=== PATIENT | female | born 1995 | race Caucasian/White ===

== ENCOUNTER 2021-03-06 10:15 | Outpatient (REF) | payer MEDICARE, MEDICAID, SELFPAY | END 2021-03-06 10:16 | disposition home or self-care (01) | LOC: HO.LAB 10:15 | PROVIDERS: Visit Provider Internal Medicine | DX: Z20.822 Contact with and (suspected) exposure to COVID-19 (principal) | CPT/HCPCS: C9803; U0003; U0005 ==

== ENCOUNTER 2022-05-13 14:54 | Emergency (ER) | payer MEDICARE, MEDICAID, SELFPAY ==
--- NOTE | ~2022-05-13 | XR_ITS ---
EXAMINATION: XR HAND, LEFT CLINICAL INFORMATION: Ring finger injury COMPARISON: Left hand radiographs 09/28/2012 TECHNIQUE: PA, lateral, and oblique views of the left hand. FINDINGS: Apparent subtle cortical step-off at the base of the ring finger distal phalanx as seen on the oblique projection, equivocal for nondisplaced fracture. Finding is not confirmed on additional views. No additional fracture or dislocation. The joint spaces throughout the hand and wrist are maintained. XR/XR hand LT min 3V IMPRESSION: Apparent subtle cortical step-off equivocal for nondisplaced fracture at the base of the ring finger distal phalanx as seen on the oblique view. No definite or additional fracture identified.
[2022-05-13 16:35] VITALS: BP 121/69; PULSE 78; RESP 18; TEMP 36.6; O2SAT 99; BMI 26.1
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
[2022-05-13] MEDS: Ketorolac Tromethamine 15 MG/ML VIAL IM (19:29)
== END 2022-05-13 19:36 | disposition home or self-care (01) ==
PROVIDERS: Emergency Provider Internal Medicine
DX: S62.605A Fracture of unspecified phalanx of left ring finger, initial encounter for closed fracture (principal); M79.642 Pain in left hand; F10.129 Alcohol abuse with intoxication, unspecified; W01.0XXA Fall on same level from slipping, tripping and stumbling without subsequent striking against object, initial encounter; Y93.9 Activity, unspecified; Y92.9 Unspecified place or not applicable; Y99.9 Unspecified external cause status; Y90.9 Presence of alcohol in blood, level not specified
CPT/HCPCS: 73130; 96372; 99282; 99283; 99284; J1885

== ENCOUNTER 2022-05-27 07:54 | Outpatient (REF) | payer MEDICARE, MEDICAID, SELFPAY | END 2022-05-27 07:55 | disposition home or self-care (01) | LOC: HO.HOSX 07:54 | PROVIDERS: Visit Provider Physician Assistant | DX: Z13.89 Encounter for screening for other disorder (principal) ==

== ENCOUNTER 2022-07-07 10:52 | Outpatient (REF) | payer MEDICARE, MEDICAID, SELFPAY ==
--- NOTE | ~2022-07-07 | XR_ITS ---
EXAMINATION: XR HAND, RIGHT CLINICAL INFORMATION: Right hand pain COMPARISON: None TECHNIQUE: PA, lateral, and oblique views of the right hand. FINDINGS: The bones are normal. No fracture. Alignment is anatomic. Joint spaces are maintained. No erosions or soft tissue calcifications. Soft tissue swelling seen in the second digit centered at the PIP joint XR/XR hand RT min 3V IMPRESSION: Soft tissue swelling of the second PIP joint. No acute osseous process
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
== END 2022-07-07 10:53 | disposition home or self-care (01) ==
LOC: HO.HOSX 10:52
PROVIDERS: Visit Provider Orthopaedic Surgery
DX: S62.635A Displaced fracture of distal phalanx of left ring finger, initial encounter for closed fracture (principal); S69.91XA Unspecified injury of right wrist, hand and finger(s), initial encounter
CPT/HCPCS: 73130; 99202

== ENCOUNTER 2022-07-15 08:30 | Outpatient (REF) | payer MEDICARE, MEDICAID, SELFPAY ==
--- NOTE | ~2022-07-15 | XR_ITS ---
EXAMINATION: XR LUMBOSACRAL SPINE CLINICAL INFORMATION: Low back pain. COMPARISON: None TECHNIQUE: Three views of the lumbosacral spine. FINDINGS: There is normal lumbar lordosis. The vertebral heights, alignment and disc heights are normal. There is no visible acute fracture, dislocation or lytic process seen. SI joints are symmetrical and normal. The paravertebral soft tissues are normal. XR/XR lumbar spine 2-3V IMPRESSION: Unremarkable lumbar spine exam.
[2022-07-15 09:28] LABS: Hematocrit 37.7 % (37.0-47.0); Hemoglobin 12.4 g/dl (12.0-16.0); Mean Corpuscular HGB Conc 32.9 g/dl (31.0-35.0); Mean Corpuscular Hemoglobin 28.2 pg (27.0-33.0); Mean Corpuscular Volume 85.9 fL (80.0-98.0); Mean Platelet Volume 10.4 fL (9.4-12.3); Platelet Count 333 X10*3/uL (160-400); Red Blood Count 4.39 X10*6/uL (4.20-5.50); Red Cell Distribution Width 14.2 % (11.0-16.0)
[2022-07-15 10:09] LABS: Alanine Aminotransferase 14 U/L (0-31); Albumin Level 4.3 g/dL (3.5-5.0); Alkaline Phosphatase 59 U/L (39-117); Anion Gap 16 (12-20); Aspartate Amino Transferase 16 U/L (5-31); Bilirubin Total < 0.2 mg/dL (0.0-1.0); Blood Urea Nitrogen 10 mg/dL (9-16); Calcium 9.1 mg/dL (8.4-10.2); Carbon Dioxide 20 mmol/L (22-29); Chloride 107 mmol/L (96-108); Estimated Glomerular Filt Rate > 60; Glucose Fasting 89 mg/dL (60-99); Iron 40 mcg/dL (30-160); Percent Iron Saturation 11 % (15-50); Potassium 4.5 mmol/L (3.3-5.1); Sodium 138 mmol/L (135-145); Total Iron Binding Capacity 349 mcg/dL (228-428); Total Protein 7.2 g/dL (6.5-8.0); Unsaturated Iron Binding 309 ug/dL
[2022-07-15 10:16] LABS: TSH reflex Free T4 1.26 uIU/mL (0.32-4.0)
== END 2022-07-15 08:31 | disposition home or self-care (01) ==
LOC: HO.LAB 08:30
PROVIDERS: PCP Physician Assistant; Visit Provider Physician Assistant
DX: Z13.29 Encounter for screening for other suspected endocrine disorder (principal); M54.50 Low back pain, unspecified; D50.0 Iron deficiency anemia secondary to blood loss (chronic)
CPT/HCPCS: 36415; 72100; 80053; 83540; 84443; 85027

== ENCOUNTER 2022-08-03 17:02 | Outpatient (REF) | payer MEDICARE, MEDICAID, SELFPAY ==
--- NOTE | ~2022-08-03 | XR_ITS ---
EXAMINATION: XR HAND, LEFT CLINICAL INFORMATION: Pain in left hand COMPARISON: 07/07/2022 TECHNIQUE: PA, lateral, and oblique views of the left hand. FINDINGS: The bones and soft tissues are normal. No fracture. Alignment is anatomic. Joint spaces are maintained. No erosions or soft tissue calcifications. XR/XR hand LT min 3V IMPRESSION: No acute osseous abnormality of the left hand.
== END 2022-08-03 17:03 | disposition home or self-care (01) ==
LOC: HO.HOSX 17:02
PROVIDERS: Visit Provider Orthopaedic Surgery
DX: M79.642 Pain in left hand (principal)
CPT/HCPCS: 73130

== ENCOUNTER → 2022-08-04 10:39 | Outpatient (BNVA) | payer MEDICARE, MEDICAID, SELFPAY | PROVIDERS: PCP Physician Assistant; Visit Provider Orthopaedic Surgery | DX: M79.642 Pain in left hand (principal); S62.665D Nondisplaced fracture of distal phalanx of left ring finger, subsequent encounter for fracture with routine healing; X58.XXXD Exposure to other specified factors, subsequent encounter; S63.630A Sprain of interphalangeal joint of right index finger, initial encounter; W18.30XA Fall on same level, unspecified, initial encounter; Y93.9 Activity, unspecified; Y92.9 Unspecified place or not applicable; Y99.8 Other external cause status | CPT/HCPCS: 99212 ==

== ENCOUNTER 2023-03-10 20:20 | Emergency (ER) | payer MEDICARE, MEDICAID, SELFPAY ==
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
[2023-03-10 20:32] VITALS: BP 112/73; PULSE 101; RESP 20; TEMP 36.9; O2SAT 97; BMI 27.2
== END 2023-03-10 23:54 | disposition left against medical advice (07) ==
PROVIDERS: Emergency Provider Emergency Medicine; PCP Physician Assistant
DX: S61.411A Laceration without foreign body of right hand, initial encounter (principal); R51.9 Headache, unspecified; Y04.2XXA Assault by strike against or bumped into by another person, initial encounter; Y93.9 Activity, unspecified; Y92.9 Unspecified place or not applicable; Y99.9 Unspecified external cause status; Z79.899 Other long term (current) drug therapy
CPT/HCPCS: 70450; 70486; 99282; 99284

== ENCOUNTER 2024-03-01 10:32 | Outpatient (AMB) | payer MEDICARE, MEDICAID, SELFPAY ==
[2024-03-01 10:54] VITALS: BP 120/70; PULSE 81; TEMP 36.3; O2SAT 99; BMI 27.2
--- NOTE | 2024-03-01 10:54 | AM.OFFWIN_ITS ---
Intake Vital Signs 03/01/24 10:54 Height 4 ft 10 in Weight 130 lb BMI 27.2 BP 120/70 Blood Pressure Location Lt brachial Position Sitting Pulse 81 Pulse Source Pulse Oximeter Temp 97.3 F Temp Source Temporal Artery Scan Pulse Oximetry (%) 99 Oxygen Delivery Method Room Air Intake Visit Reasons: EST/left arm swelling (lobby) Intake Note: pt is here today for lft arm swollen started 2 days ago Patient Tobacco Use Status: Current everyday Tobacco user Allergies blueberry [Blueberry] Allergy (Severe, Verified 03/01/24 10:56) SWELLING blueberries Allergy (Unknown, Uncoded 08/04/22 10:58) facial swelling Do you need a note to return to daycare/school/sports/work: No HPI HPI Comments History of Present Illness Details 28 y/o female patient who presents to [facility] in clinic with c/o Left arm swelling x 2 days. Pt reports a small lump left forearm, that is painful. Li mited ROM due to pain. Reports numbness to the fingers. [facility] Medical History Anxiety Social History Housing: Other Alcohol intake: current Alcohol intake frequency: a few times a month Patient Tobacco Use Status: Current everyday Tobacco user Cigarettes Per Day: 10 e-Cigarette/Vaping Use: Never Used Substance Use Type: Marijuana service: No Current occupational status: disabled Current occupation: rt hand Cognitive needs: No Hearing needs: No Vision needs: No Review of Systems Const All systems reviewed & are unremarkable except as noted in HPI and below Physical Exam Vital Signs: Last Vital Signs Temp 97.3 F 03/01/24 10:54 Pulse 81 03/01/24 10:54 BP 120/70 03/01/24 10:54 Pulse Ox 99 03/01/24 10:54 Oxygen Delivery Method Room Air 03/01/24 10:54 BMI result Body Mass Index 27.2 Const General: comfortable and no acute distress Orientation/consciousness: patient oriented x3 Neuro General: patient oriented x3, gait normal and moves all extremities Extrem Left upper extremity: normal capillary refill and elbow/forearm (A small Palpable soft lump, tender and non mobile by the left Bicep) Details: tenderness and abnormal ROM (Limited ROM of left arm due to pain. ) Details: pain with active ROM Psych Speech and movement: Normal speech and movement present Assessment & Plan Assessment & Plan (1) Left forearm pain: Code(s): M79.632 - Pain in left forearm Plan: - Lump vs Lipoma vs cyst - Ordered routine U/S - Acetaminophen for pain relief - F/u With PCP. Orders: Orders US extremity nonvascular ray Today M79.632 - Pain in left forearm Coding Level of Care Code Est Pt Level 3 (90073) Diagnoses Left forearm pain M79.632 Time Spent (min) 15
== END 2024-03-01 12:05 | disposition home or self-care (01) ==
PROVIDERS: PCP Physician Assistant; Visit Provider Nurse Practitioner Family
DX: M79.632 Pain in left forearm (principal)
CPT/HCPCS: 99213

== ENCOUNTER 2024-03-07 13:31 | Outpatient (REF) | payer MEDICARE, MEDICAID, SELFPAY ==
--- NOTE | ~2024-03-07 | US_ITS ---
EXAMINATION: ULTRASOUND LEFT ARM CLINICAL INFORMATION: Palpable lump biceps with pain and swelling for 2 days and decreased range of motion. COMPARISON: None available. TECHNIQUE: High-frequency linear ultrasound transducer was used to examine the area of clinical concern. FINDINGS: No abnormality is seen. Normal muscle is identified. No masses, fluid collections or adenopathy is seen. US/US extremity nonvascular ray IMPRESSION: No abnormality is seen.
== END 2024-03-07 13:32 | disposition home or self-care (01) ==
LOC: HO.US 13:31
PROVIDERS: PCP Physician Assistant; Visit Provider Nurse Practitioner Family
DX: M79.632 Pain in left forearm (principal)
CPT/HCPCS: 76882

== ENCOUNTER 2024-03-26 04:33 | Emergency (ER) | payer MEDICARE, MEDICAID, SELFPAY ==
[2024-03-26 05:04] VITALS: BP 95/57; PULSE 88; RESP 20; TEMP 36.7; O2SAT 98; BMI 27.2
[2024-03-26 05:25] LABS: Basophils Percent Auto 0.2 % (0-2); Eosinophils Percent Auto 0.1 % (0-4); Hematocrit 44.1 % (37.0-47.0); Hemoglobin 15.1 g/dl (12.0-16.0); Imm Gran Abs Auto 0.07 X10*3/uL (0.00-0.03); Imm Gran Pct Auto 0.4 % (0.0-0.4); Lymphocytes Absolute Auto 0.6 X10*3/uL (1.2-4.9); Lymphocytes Percent Auto 3.8 % (20-40); MANUAL DIFF FLAG SCAN; Mean Corpuscular HGB Conc 34.2 g/dl (31.0-35.0); Mean Corpuscular Volume 84.8 fL (80.0-98.0); Mean Platelet Volume 9.7 fL (9.4-12.3); Monocytes Absolute Auto 0.5 X10*3/uL (0.1-1.2); Monocytes Percent Auto 3.2 % (2-11); Neutrophils Absolute Auto 15.6 x10*3/uL (2.0-8.3); Neutrophils Percent Auto 92.3 % (45-73); Platelet Count 344 X10*3/uL (160-400); Red Cell Distribution Width 13.8 % (11.0-16.0); SCAN SMEAR FLAG 1; White Blood Count 16.9 X10*3/uL (4.8-10.8)
[2024-03-26 05:39] LABS: Alanine Aminotransferase 21 U/L (0-31); Albumin Level 5.2 g/dL (3.5-5.0); Alkaline Phosphatase 63 U/L (39-117); Anion Gap 19 (12-20); Aspartate Amino Transferase 22 U/L (5-31); Bilirubin Total 1.3 mg/dL (0.0-1.0); Blood Urea Nitrogen 18 mg/dL (9-16); Calcium 10.8 mg/dL (8.4-10.2); Carbon Dioxide 16 mmol/L (22-29); Chloride 106 mmol/L (96-108); Creatinine Clr Calc Pharmacy 63.1; Estimated Glomerular Filt Rate > 60; Glucose Random 211 mg/dL (60-115); Potassium 3.7 mmol/L (3.3-5.1); Sodium 137 mmol/L (135-145); Total Protein 8.9 g/dL (6.5-8.0)
[2024-03-26 05:41] LABS: SLIDE REVIEW VERIFIED
[2024-03-26 05:44] LABS: Alanine Aminotransferase 22 U/L (0-31); Albumin Level 5.1 g/dL (3.5-5.0); Alkaline Phosphatase 63 U/L (39-117); Aspartate Amino Transferase 22 U/L (5-31); Bilirubin Direct 0.5 mg/dL (0.0-0.5); Bilirubin Total 1.3 mg/dL (0.0-1.0); Lipase 12 U/L (8-78); Total Protein 8.8 g/dL (6.5-8.0)
[2024-03-26 05:48] LABS: HCG Quantitative < 2 mIU/mL
[2024-03-26 06:02] LABS: Influenza A PCR NEGATIVE (Negative); Influenza B PCR NEGATIVE (Negative); Resp Syncy Virus RNA Qual PCR NEGATIVE (Negative); SARS COV2 PCR INHOUSE NEGATIVE (Negative)
[2024-03-26 07:06] VITALS: BP 123/83; PULSE 82; RESP 20; O2SAT 100
--- NOTE | 2024-03-26 07:27 | ED_ITS ---
HPI - General Adult General Chief complaint: Nausea/Vomiting/Diarrhea Stated complaint: vomiting Time Seen by Provider: 03/26/24 07:13 Source: patient Mode of arrival: ambulatory Limitations: no limitations History of Present Illness ED Provider: Odalys Jang NP HPI narrative: Patient is a 28-year-old female presenting to the emergency department with sudden onset of nausea, vomiting, and diarrhea since 11:00 a.m. last night. Complains of epigastric abdominal pain. States every time she tries to drink p.o. fluids it causes her to vomit. Also feels lightheaded. Reports that her niece was recently sick with similar symptoms. Denies fevers. MD complaint: Nausea, vomiting, diarrhea Onset (ago): hour(s) Location: abdomen Quality: burning Pain Consistency: colicky Relieving factors: none Associated symptoms: nausea/vomiting Treatments prior to arrival: none Related Data Previous Rx's ?Medication ?Instructions ?Recorded nicotine (polacrilex) 2 mg gum 2 mg buccal Q2H PRN nicotine 07/14/22 cravings 30 days #100 ea naproxen 500 mg tablet 500 mg PO BID 30 days #60 tabs 07/27/22 albuterol sulfate 90 mcg/actuation 1 inh inhalation QID PRN shortness 08/18/22 aerosol inhaler of breath or wheezing 30 days #8.5 grams famotidine 20 mg tablet 20 mg PO DAILY 30 days #30 tabs 08/18/22 trazodone 50 mg tablet 50 mg PO DAILY 90 days #90 tabs 08/18/22 venlafaxine 37.5 mg 37.5 mg PO DAILY 30 days #30 caps 08/18/22 capsule,extended release 24 hr (Effexor XR) tramadol 50 mg tablet 50 mg PO BID PRN pain 7 days #14 11/26/22 tabs hydroxyzine HCl 10 mg tablet 20 mg (2 x 10 mg) PO BEDTIME 30 11/28/23 days #60 tabs ondansetron 4 mg disintegrating 4 mg PO Q8H PRN nausea and 03/26/24 tablet vomiting #10 tabs Allergies Allergy/AdvReac Type Severity Reaction Status Date / Time blueberry [Blueberry] Allergy Severe SWELLING Verified 03/26/24 05:10 blueberries Allergy Unknown facial Uncoded 08/04/22 10:58 swelling Review of Systems 2 Review of Systems: As per HPI. Yes all other systems are reviewed and are negative Constitutional: Constitutional: Reports as per HPI [facility] Past Medical History Medical History Anxiety Social History Social History Housing: Other Alcohol intake: current Alcohol intake frequency: a few times a month Patient Tobacco Use Status: Current everyday Tobacco user Cigarettes Per Day: 10 Smoked in Last 30 Days: Yes e-Cigarette/Vaping Use: Never Used Use of substances other than those prescribed or required for medical reasons: No Substance Use Type: Marijuana Advance Directives: No Advance Directives Information Provided: No service: No Current occupational status: disabled Current occupation: rt hand Cognitive needs: No Hearing needs: No Vision needs: No Physical Exam ED Vital Signs: Vital Signs - 24 hr 03/26/24 05:04 03/26/24 07:06 Temperature 98.0 F Pulse Rate 88 82 Respiratory Rate 20 20 Blood Pressure 95/57 L 123/83 Pulse Oximetry 98 100 Oxygen Delivery Method Room Air Room Air BMI result Body Mass Index 27.2 Vital signs have been reviewed and appear to be correct. Blood pressure normal. Heart rate normal. Respiratory rate normal. Temperature normal. Oxygen saturation normal. Const General: cooperative, healthy appearing and no acute distress Orientation/consciousness: oriented to person, oriented to place, oriented to time and patient oriented x3 Limitations: no limitations HENMT Head: Yes normocephalic and Yes atraumatic Ears: external ears normal General nose exam: Normal external nose present Face and sinus: Yes face symmetric Mouth: oropharynx normal and moist mucous membranes Throat: Yes uvula midline Eyes Pupils: Equal, round and reactive pupils present Neck Neck: Yes normal visual inspection and Yes supple Resp Effort & Inspection: normal respiratory effort and able to speak in complete sentences Auscultation: clear to auscultation bilaterally Cardio Rate: regular rate Rhythm: regular rhythm Heart sounds: S1 normal heart sound present and S2 normal heart sound present GI Palpation (GI): Soft to palpation and nontender Auscultation: normoactive bowel sounds General: Yes no CVA tenderness Back/Spine/Pelvis Back: no CVA tenderness Skin General skin exam: elasticity normal and turgor normal Neuro General: oriented to person, oriented to place, oriented to time, patient oriented x3, moves all extremities, no focal motor deficits and CN's II-XI intact bilaterally Cranial nerves: Yes Equal, round and reactive pupils present Cognition (Neuro): normal cognition Extrem General: Yes full ROM, Yes no pedal edema and Yes no calf tenderness Psych Mental Status: mental status grossly normal Affect: normal affect Thought process: Normal thought process present Medications Administered Discontinued Medications Generic Name Dose Route Start Last Admin Trade Name Lucien PRN Reason Stop Dose Admin Diphenhydramine HCl 25 mg 03/26/24 11:05 03/26/24 11:11 Diphenhydramine Hcl 50 Mg/Ml Vial IVPUSH 03/26/24 11:06 25 mg ONCE ONE Administration Sodium Chloride 1,000 mls @ 999 mls/hr 03/26/24 07:45 03/26/24 08:56 Ns IV 03/26/24 08:45 Infused .Q1H1M FÉLIX Infusion Ketorolac Tromethamine 15 mg 03/26/24 07:33 03/26/24 07:48 Ketorolac Tromethamine 15 Mg/Ml Vial IVPUSH 03/26/24 07:34 15 mg ONCE ONE Administration Metoclopramide HCl 10 mg 03/26/24 11:05 03/26/24 11:11 Metoclopramide Hcl 10 Mg/2 Ml Vial IVPUSH 03/26/24 11:06 10 mg ONCE ONE Administration Ondansetron HCl 4 mg 03/26/24 07:32 03/26/24 07:48 Ondansetron Hcl 4 Mg/2 Ml Vial IVPUSH 03/26/24 07:33 4 mg ONCE ONE Administration Medical Decision Making Medical Decision Making [facility] Narrative: Patient is a 28-year-old female presenting to the emergency department with sudden onset of nausea, vomiting, and diarrhea since 11:00 a.m. last night. On exam patient is awake, A+Ox3, VS WNL, afebrile, normal neurological exam without focal deficits, physical exam findings as above. Given reported symptoms and physical exam findings, initial differential includes viral illness, gastritis, gastroenteritis. Unlikely cholecystitis or pancreatitis as patient has no abdominal tenderness to palpation. Labs notable for leukocytosis, slightly elevated bilirubin likely due to vomiting, hcg negative. Plan for IV fluids, antiemetics, reassess. 11:00 Patient complains of ongoing nausea and vomiting after attempting to drink dwaine jose eduardo. Will order reglan and benadryl. 12:21 patient reports symptoms have improved significantly after Reglan and Benadryl, able to tolerate small sips of water. Feels stable for discharge home. Will send prescription for Zofran. Advised patient to progress slowly with clear fluids then bland foods then back to regular diet as tolerated. Instructed to follow-up with PCP. Return precautions discussed at bedside. Patient verbalized understanding of and agreement with plan. Differential Diagnosis Differential Diagnoses: The differential diagnosis associated with the presentation includes As per [facility]. Admission/Observation Consideration of admission/observation: Escalation of care including admission/observation considered Patient would have been admitted to the hospital had their work up had any findings where hospital admission was appropriate and their clinical presentation warranted hospital admission. Lab Data [facility] Lab Attestation statement: I reviewed the patient's lab results. As per MDM. 03/26/24 05:19 03/26/24 05:19 Labs: Lab Results 03/26/24 03/26/24 03/26/24 Range/Units 05:19 05:19 05:19 WBC 16.9 H (4.8-10.8) X10*3/uL RBC 5.20 (4.20-5.50) X10*6/uL Hgb 15.1 D (12.0-16.0) g/dl Hct 44.1 (37.0-47.0) % MCV 84.8 (80.0-98.0) fL MCH 29.0 (27.0-33.0) pg MCHC 34.2 (31.0-35.0) g/dl RDW 13.8 (11.0-16.0) % Plt Count 344 (160-400) X10*3/uL MPV 9.7 (9.4-12.3) fL Immature Gran % (Auto) 0.4 (0.0-0.4) % Neut % (Auto) 92.3 H (45-73) % Lymph % (Auto) 3.8 L (20-40) % [place] % (Auto) 3.2 (2-11) % Eos % (Auto) 0.1 (0-4) % Baso % (Auto) 0.2 (0-2) % Lymph # (Auto) 0.6 L (1.2-4.9) X10*3/uL [place] # (Auto) 0.5 (0.1-1.2) X10*3/uL Eos # (Auto) 0.0 (0.0-0.4) X10*3/uL Baso # (Auto) 0.0 (0.0-0.2) X10*3/uL Abs Immat Gran (auto) 0.07 H (0.00-0.03) X10*3/uL Absolute Neuts (auto) 15.6 H (2.0-8.3) x10*3/uL Absolute Nucleated RBC 0.000 (0.0-0.012) X10*3/uL Nucleated RBC % (auto) 0.0 (0.0-0.2) /100WBC Smear Tech's Comments VERIFIED Sodium 137 (135-145) mmol/L Potassium 3.7 (3.3-5.1) mmol/L Chloride 106 (96-108) mmol/L Carbon Dioxide 16 L (22-29) mmol/L Anion Gap 19 (12-20) BUN 18 H (9-16) mg/dL Creatinine 0.99 (0.5-1.4) mg/dL Estim Creat Clear Calc 63.1 Estimated GFR > 60 Random Glucose 211 H (60-115) mg/dL Calcium 10.8 H D (8.4-10.2) mg/dL Total Bilirubin 1.3 H 1.3 H (0.0-1.0) mg/dL Direct Bilirubin 0.5 (0.0-0.5) mg/dL AST 22 22 (5-31) U/L ALT 21 (0-31) U/L Alkaline Phosphatase (39-117) U/L Total Protein (6.5-8.0) g/dL Albumin (3.5-5.0) g/dL Lipase (8-78) U/L Beta HCG, Quant mIU/mL Urine Color Urine Appearance Urine pH (5.0-9.0) Ur Specific [place] (1.005-1.025) Urine Protein (Neg-Trace) mg/dL Urine Glucose (UA) (Negative) mg/dL Urine Ketones (Negative) mg/dL Urine Blood (Negative) Urine Nitrite (Negative) Ur Leukocyte Esterase (Negative) Urine RBC (0-2) /HPF Urine WBC (0-5) /HPF Ur Squamous Epith Cells (0-2) /HPF Urine Bacteria (None Seen) Hyaline Casts (0-2) /LPF Influenza Type A (PCR) (Negative) Influenza Type B (PCR) (Negative) RSV RNA Qual (PCR) (Negative) SARS-CoV-2 RNA (RT-PCR) (Negative) 03/26/24 03/26/24 03/26/24 Range/Units 05:19 05:19 05:19 WBC (4.8-10.8) X10*3/uL RBC (4.20-5.50) X10*6/uL Hgb (12.0-16.0) g/dl Hct (37.0-47.0) % MCV (80.0-98.0) fL MCH (27.0-33.0) pg MCHC (31.0-35.0) g/dl RDW (11.0-16.0) % Plt Count (160-400) X10*3/uL MPV (9.4-12.3) fL Immature Gran % (Auto) (0.0-0.4) % Neut % (Auto) (45-73) % Lymph % (Auto) (20-40) % [place] % (Auto) (2-11) % Eos % (Auto) (0-4) % Baso % (Auto) (0-2) % Lymph # (Auto) (1.2-4.9) X10*3/uL [place] # (Auto) (0.1-1.2) X10*3/uL Eos # (Auto) (0.0-0.4) X10*3/uL Baso # (Auto) (0.0-0.2) X10*3/uL Abs Immat Gran (auto) (0.00-0.03) X10*3/uL Absolute Neuts (auto) (2.0-8.3) x10*3/uL Absolute Nucleated RBC (0.0-0.012) X10*3/uL Nucleated RBC % (auto) (0.0-0.2) /100WBC Smear Tech's Comments Sodium (135-145) mmol/L Potassium (3.3-5.1) mmol/L Chloride (96-108) mmol/L Carbon Dioxide (22-29) mmol/L Anion Gap (12-20) BUN (9-16) mg/dL Creatinine (0.5-1.4) mg/dL Estim Creat Clear Calc Estimated GFR Random Glucose (60-115) mg/dL Calcium (8.4-10.2) mg/dL Total Bilirubin (0.0-1.0) mg/dL Direct Bilirubin (0.0-0.5) mg/dL AST (5-31) U/L ALT 22 (0-31) U/L Alkaline Phosphatase 63 63 (39-117) U/L Total Protein 8.9 H 8.8 H (6.5-8.0) g/dL Albumin 5.2 H (3.5-5.0) g/dL Lipase (8-78) U/L Beta HCG, Quant mIU/mL Urine Color Urine Appearance Urine pH (5.0-9.0) Ur Specific [place] (1.005-1.025) Urine Protein (Neg-Trace) mg/dL Urine Glucose (UA) (Negative) mg/dL Urine Ketones (Negative) mg/dL Urine Blood (Negative) Urine Nitrite (Negative) Ur Leukocyte Esterase (Negative) Urine RBC (0-2) /HPF Urine WBC (0-5) /HPF Ur Squamous Epith Cells (0-2) /HPF Urine Bacteria (None Seen) Hyaline Casts (0-2) /LPF Influenza Type A (PCR) (Negative) Influenza Type B (PCR) (Negative) RSV RNA Qual (PCR) (Negative) SARS-CoV-2 RNA (RT-PCR) (Negative) 03/26/24 03/26/24 Range/Units 05:19 09:04 WBC (4.8-10.8) X10*3/uL RBC (4.20-5.50) X10*6/uL Hgb (12.0-16.0) g/dl Hct (37.0-47.0) % MCV (80.0-98.0) fL MCH (27.0-33.0) pg MCHC (31.0-35.0) g/dl RDW (11.0-16.0) % Plt Count (160-400) X10*3/uL MPV (9.4-12.3) fL Immature Gran % (Auto) (0.0-0.4) % Neut % (Auto) (45-73) % Lymph % (Auto) (20-40) % [place] % (Auto) (2-11) % Eos % (Auto) (0-4) % Baso % (Auto) (0-2) % Lymph # (Auto) (1.2-4.9) X10*3/uL [place] # (Auto) (0.1-1.2) X10*3/uL Eos # (Auto) (0.0-0.4) X10*3/uL Baso # (Auto) (0.0-0.2) X10*3/uL Abs Immat Gran (auto) (0.00-0.03) X10*3/uL Absolute Neuts (auto) (2.0-8.3) x10*3/uL Absolute Nucleated RBC (0.0-0.012) X10*3/uL Nucleated RBC % (auto) (0.0-0.2) /100WBC Smear Tech's Comments Sodium (135-145) mmol/L Potassium (3.3-5.1) mmol/L Chloride (96-108) mmol/L Carbon Dioxide (22-29) mmol/L Anion Gap (12-20) BUN (9-16) mg/dL Creatinine (0.5-1.4) mg/dL Estim Creat Clear Calc Estimated GFR Random Glucose (60-115) mg/dL Calcium (8.4-10.2) mg/dL Total Bilirubin (0.0-1.0) mg/dL Direct Bilirubin (0.0-0.5) mg/dL AST (5-31) U/L ALT (0-31) U/L Alkaline Phosphatase (39-117) U/L Total Protein (6.5-8.0) g/dL Albumin 5.1 H (3.5-5.0) g/dL Lipase 12 (8-78) U/L Beta HCG, Quant < 2 mIU/mL Urine Color Dark Yellow Urine Appearance Cloudy Urine pH 6.0 (5.0-9.0) Ur Specific [place] >= 1.030 H (1.005-1.025) Urine Protein 300 (3+) H (Neg-Trace) mg/dL Urine Glucose (UA) Negative (Negative) mg/dL Urine Ketones 80 (Negative) mg/dL Urine Blood Trace H (Negative) Urine Nitrite Negative (Negative) Ur Leukocyte Esterase Trace H (Negative) Urine RBC 0-2 (0-2) /HPF Urine WBC 0-5 (0-5) /HPF Ur Squamous Epith Cells 3-5 (0-2) /HPF Urine Bacteria 1+ (None Seen) Hyaline Casts 0-2 (0-2) /LPF Influenza Type A (PCR) NEGATIVE (Negative) Influenza Type B (PCR) NEGATIVE (Negative) RSV RNA Qual (PCR) NEGATIVE (Negative) SARS-CoV-2 RNA (RT-PCR) NEGATIVE (Negative) External Record Review External record reviewed: Inpatient record, Office record and Outpatient record Prescription Management I considered prescription management with: Other Critical Care Time Critical Care Time Critical Care Time: Yes Total Critical Care Time: 46 Attestation: I have personally provided critical care time exclusive of time spent on separately billable procedures. Time includes review of lab data, radiology results, discussion with consultants, and monitoring for potential decompensation. Intervention performed as documented. Discharge Plan Discharge Clinical Impression: Gastroenteritis Patient Disposition: Home, Self-Care Instructions: Clear Liquid Diet (ED), Diet for Stomach Ulcers and Gastritis (ED), Gastroenteritis (DC), Acute Nausea and Vomiting (ED), Acute Diarrhea (ED) Additional Instructions: You have been evaluated in the emergency department today for nausea, vomiting, and diarrhea. Your evaluation suggests that your symptoms are most likely due to a viral illness which will improve on it's own with rest and fluids. Remember to drink plenty of fluids at home. You are being prescribed ondansetron which you can use as per the prescription instructions for nausea. Please follow up with your primary care provider within two days. Return to the emergency department if you experience worsening or uncontrolled pain, inability to tolerate fluids by mouth, difficulty breathing, fevers 100.4? F or greater, recurrent vomiting, or any other concerning symptoms. Prescriptions: New ondansetron 4 mg tablet,disintegrating 4 mg PO Q8H PRN (Reason: nausea and vomiting) Qty: 10 0RF No Action naproxen 500 mg tablet 500 mg PO BID 30 Days Qty: 60 0RF tramadol 50 mg tablet 50 mg PO BID PRN (Reason: pain) 7 Days Qty: 14 0RF hydroxyzine HCl 10 mg tablet 20 mg PO BEDTIME 30 Days Qty: 60 3RF nicotine (polacrilex) 2 mg gum 2 mg buccal Q2H PRN (Reason: nicotine cravings) 30 Days Qty: 100 0RF venlafaxine [Effexor XR] 37.5 mg capsule,extended release 24hr 37.5 mg PO DAILY 30 Days Qty: 30 3RF famotidine 20 mg tablet 20 mg PO DAILY 30 Days Qty: 30 3RF albuterol sulfate 90 mcg/actuation HFA aerosol inhaler 1 inh inhalation QID PRN (Reason: shortness of breath or wheezing) 30 Days Qty: 8.5 3RF trazodone 50 mg tablet 50 mg PO DAILY 90 Days Qty: 90 1RF Stand Alone Forms: Work/School Release Print Language: Bahraini
[2024-03-26] MEDS: Ketorolac Tromethamine 15 MG/ML VIAL IVPUSH (07:48)
[2024-03-26] MEDS: ondansetron HCL 4 MG/2 ML VIAL IVPUSH (07:48)
[2024-03-26] MEDS: 0.9 % Sodium Chloride 1,000 ML 999 ML IV (07:48)
[2024-03-26 09:12] LABS: Appearance Urine Cloudy; Color Urine Dark Yellow; Glucose Urine UA Negative (Negative); Leukocyte Esterase Urine Trace (Negative); Nitrite Urine Negative (Negative); Specific Gravity - Urine >= 1.030 (1.005-1.025); UMIC TRIGGER UACC YES; Urine Blood Trace (Negative); Urine Ketones 80 mg/dL (Negative); Urine Protein 300 (3+) mg/dL (Neg-Trace)
[2024-03-26 09:30] LABS: Bacteria Urine 1+ (None Seen); Hyaline Casts Urine 0-2 /LPF (0-2); RBC Urine 0-2 /HPF (0-2); WBC Urine 0-5 /HPF (0-5)
--- NOTE | 2024-03-26 10:40 | PC.NURSE ---
Patient drank dwaine jose eduardo she had brought in from home. Patient vomiting multiple times, provider aware
[2024-03-26] MEDS: diphenhydrAMINE HCL 50 MG/ML VIAL 25 MG IVPUSH (11:11)
[2024-03-26] MEDS: Metoclopramide HCl 10 MG/2 ML VIAL IVPUSH (11:11)
[2024-03-26 12:52] VITALS: BP 123/82; PULSE 82; RESP 18; TEMP 36.8; O2SAT 98
== END 2024-03-26 12:53 | disposition home or self-care (01) ==
PROVIDERS: Emergency Provider Emergency Medicine; PCP Physician Assistant
DX: K52.9 Noninfective gastroenteritis and colitis, unspecified (principal); Z03.818 Encounter for observation for suspected exposure to other biological agents ruled out
CPT/HCPCS: 0241U; 36415; 80053; 80076; 81001; 82248; 83690; 84702; 85025; 96361; 96374; 96375; 99284; J1200; J1885; J2405; J2765

== ENCOUNTER 2024-04-20 00:51 | Emergency (ER) | payer MEDICARE, MEDICAID, SELFPAY ==
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
[2024-04-20 01:02] VITALS: BP 117/74; PULSE 97; RESP 16; TEMP 36.7; O2SAT 97; BMI 25.8
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
[2024-04-20] MEDS: Ibuprofen 600 MG TABLET PO (03:16)
[2024-04-20 04:09] VITALS: BP 120/81; PULSE 100; RESP 16; TEMP 36.8; O2SAT 96
[2024-04-20 04:15] VITALS: BP 120/81; PULSE 100; RESP 16; TEMP 36.8; O2SAT 96
== END 2024-04-20 04:16 | disposition home or self-care (01) ==
PROVIDERS: Emergency Provider Internal Medicine; PCP Physician Assistant
DX: S20.219A Contusion of unspecified front wall of thorax, initial encounter (principal); V47.5XXA Car driver injured in collision with fixed or stationary object in traffic accident, initial encounter; M25.561 Pain in right knee; Y93.89 Activity, other specified; Y92.410 Unspecified street and highway as the place of occurrence of the external cause; Y99.9 Unspecified external cause status
CPT/HCPCS: 71046; 73560; 99283

== ENCOUNTER 2024-04-27 09:29 | Outpatient (AMB) | payer MEDICARE, MEDICAID, SELFPAY ==
--- NOTE | 2024-04-27 09:51 | MHC.OFFWIV ---
Intake Vital Signs 04/27/24 09:52 Height 4 ft 10 in BP 122/80 Blood Pressure Location Rt brachial Position Sitting Pulse 82 Pulse Source Pulse Oximeter Temp 98.2 F Temp Source Temporal Artery Scan Pulse Oximetry (%) 97 Intake Visit Reasons: EP ?strep Intake Note: pt is here for sore throat Patient Tobacco Use Status: Current everyday Tobacco user Allergies blueberry [Blueberry] Allergy (Severe, Verified 04/27/24 09:52) SWELLING blueberries Allergy (Unknown, Uncoded 04/20/24 01:05) facial swelling Do you need a note to return to daycare/school/sports/work: No HPI EP ?strep HPI Details This is a 28-year-old female patient who presents to the walk-in clinic today with report sore throat since yesterday. Reports her throat felt somewhat scratchy yesterday, and she woke up last night with extremely painful throat and enlarged tonsils with white spots on them. Denies any known exposure to sick contacts. Denies any fever or chills. Denies any other sick symptoms..\ [facility] Medical History Anxiety Social History Housing: Other Alcohol intake: current Alcohol intake frequency: a few times a month Patient Tobacco Use Status: Current everyday Tobacco user Cigarettes Per Day: 10 e-Cigarette/Vaping Use: Never Used Substance Use Type: Marijuana service: No Current occupational status: disabled Current occupation: rt hand Cognitive needs: No Hearing needs: No Vision needs: No Review of Systems Const All systems reviewed & are unremarkable except as noted in HPI and below Physical Exam Vital Signs: Last Vital Signs Temp 98.2 F 04/27/24 09:52 Pulse 82 04/27/24 09:52 BP 122/80 04/27/24 09:52 Pulse Ox 97 04/27/24 09:52 Const General: cooperative and no acute distress Nutritional Appearance: average body habitus HEENT Head: Yes normal to inspection Ears: hearing grossly normal bilaterally Face and sinus: Yes normal facial exam Mouth: Normal oral and palatal mucosa present Throat: Yes posterior oropharynx abnormal (Tonsillar hypertrophy, erythema, exudate bilaterally) Neck Neck: Yes no lymphadenopathy Resp Effort & Inspection: normal respiratory effort Auscultation: clear to auscultation bilaterally Cardio Rate: regular rate Rhythm: regular rhythm Skin General skin exam: no rashes or lesions noted Extrem General: Yes capillary refill normal and Yes no clubbing, cyanosis or edema Psych Appearance: grossly normal Mental Status: mental status grossly normal Speech and movement: Normal speech and movement present Results AMB Rapid Strep AMB Rapid Strep Positive Last Edit by Ernesto Broussard CMA on 04/27/24 10:14 Results Reviewed Results Reviewed: Laboratory Last Values Strep Scn Rapid Clinic Positive 04/27/24 10:13 Assessment & Plan Assessment & Plan (1) Acute streptococcal pharyngitis: Code(s): J02.0 - Streptococcal pharyngitis Plan: Rapid strep was positive. Patient started on Pen V potassium t.i.d. 10 days. We reviewed indications, use, possible side effects of medication. I stressed importance of completing course of antibiotics. Recommended increased hydration, and may take Tylenol/Motrin as needed for discomfort. She can also do some warm salty water gargles, and use [id number] lozenges/drops for comfort. If she does not improve with treatment, or symptoms worsen, she can return to the clinic for further evaluation. All questions were answered and patient verbalizes understanding and agrees to plan. Orders: Orders AMB Rapid Strep Screen Today Z13.9 - Encounter for screening, unspecified Medications: New penicillin V potassium 500 mg PO TID 10 days 30 tabs 0RF J02.0 - Streptococcal pharyngitis Coding Level of Care Code Est Pt Level 4 (08852) Diagnoses Acute streptococcal pharyngitis J02.0
[2024-04-27 09:52] VITALS: BP 122/80; PULSE 82; TEMP 36.8; O2SAT 97
== END 2024-04-27 10:28 | disposition home or self-care (01) ==
PROVIDERS: PCP Physician Assistant; Visit Provider Nurse Practitioner Family
DX: J02.0 Streptococcal pharyngitis (principal)
CPT/HCPCS: 87880; 99214

== ENCOUNTER 2024-05-14 13:06 | Outpatient (AMB) | payer MEDICARE, MEDICAID, SELFPAY ==
[2024-05-14 13:06] VITALS: BP 102/58; PULSE 96; O2SAT 97; BMI 26.1
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
== END 2024-05-14 13:38 | disposition home or self-care (01) ==
LOC: HO.HMGH 13:06
PROVIDERS: PCP Physician Assistant; Visit Provider Physician Assistant
DX: M25.561 Pain in right knee (principal); V89.2XXD Person injured in unspecified motor-vehicle accident, traffic, subsequent encounter; F07.81 Postconcussional syndrome; Z04.3 Encounter for examination and observation following other accident; F41.1 Generalized anxiety disorder; G89.29 Other chronic pain; R10.31 Right lower quadrant pain
CPT/HCPCS: 99214

== ENCOUNTER 2024-05-14 13:44 | Outpatient (REF) | payer MEDICARE, MEDICAID, SELFPAY ==
--- NOTE | ~2024-05-14 | XR_ITS ---
EXAMINATION: XR KNEE, RIGHT CLINICAL INFORMATION: Pain right knee COMPARISON: X-ray the right knee 04/20/2024 TECHNIQUE: Four views of the right knee. FINDINGS: No fracture or joint effusion. Alignment is anatomic. Joint spaces are maintained. No abnormal soft tissue calcification. XR/XR knee RT 4V IMPRESSION: Normal right knee.
--- NOTE | ~2024-05-14 | XR_ITS ---
EXAMINATION: XR HIP, RIGHT CLINICAL INFORMATION: Pain right hip COMPARISON: None available. TECHNIQUE: Two views of the right hip. FINDINGS: No fracture. Alignment is anatomic. Hip joint space is maintained. Soft tissues are unremarkable. XR/XR hip RT min 2V IMPRESSION: Normal right hip.
== END 2024-05-14 13:45 | disposition home or self-care (01) ==
LOC: HO.XRAY 13:44
PROVIDERS: PCP Physician Assistant; Visit Provider Physician Assistant
DX: R10.31 Right lower quadrant pain (principal); M25.561 Pain in right knee
CPT/HCPCS: 73502; 73564

== ENCOUNTER 2025-04-17 10:10 | Emergency (ER) | payer MEDICARE, MEDICAID, SELFPAY ==
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
[2025-04-17 10:15] VITALS: BP 128/81; PULSE 97; RESP 16; TEMP 36.6; O2SAT 99; BMI 25.0
--- NOTE | 2025-04-17 10:47 | ECG_ITS ---
Test Reason : dizziness Blood Pressure : */* mmHG Vent. Rate : 62 BPM Atrial Rate : 62 BPM P-R Int : 130 ms QRS Dur : 80 ms QT Int : 404 ms P-R-T Axes : 72 77 66 degrees QTcB Int : 410 ms Normal sinus rhythm Normal ECG No previous ECGs available Referred By: Generic ED Physician Electronically Signed By: ISAAC WOOD MD
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
[2025-04-17 11:46] LABS: Hematocrit 36.8 % (37.0-47.0); Hemoglobin 12.2 g/dl (12.0-16.0); Imm Gran Abs Auto 0.02 X10*3/uL (0.00-0.03); Imm Gran Pct Auto 0.3 % (0.0-0.4); Lymphocytes Absolute Auto 1.7 X10*3/uL (1.2-4.9); Mean Corpuscular HGB Conc 33.2 g/dl (31.0-35.0); Mean Corpuscular Hemoglobin 28.6 pg (27.0-33.0); Mean Corpuscular Volume 86.4 fL (80.0-98.0); NRBC Abs Auto 0.000 X10*3/uL (0.0-0.012); NRBC Pct Auto 0.0 /100WBC (0.0-0.2); Platelet Count 294 X10*3/uL (160-400); Red Blood Count 4.26 X10*6/uL (4.20-5.50); White Blood Count 7.1 X10*3/uL (4.8-10.8)
[2025-04-17 12:05] LABS: Alanine Aminotransferase 14 U/L (0-31); Albumin Level 4.2 g/dL (3.5-5.0); Alkaline Phosphatase 45 U/L (39-117); Anion Gap 10 (12-20); Aspartate Amino Transferase 19 U/L (5-31); Blood Urea Nitrogen 8 mg/dL (9-16); Calcium 9.0 mg/dL (8.4-10.2); Carbon Dioxide 25 mmol/L (22-29); Chloride 109 mmol/L (96-108); Creatinine Clr Calc Pharmacy 91.5; Estimated Glomerular Filt Rate > 60; Potassium 3.8 mmol/L (3.3-5.1); Sodium 140 mmol/L (135-145); Total Protein 7.0 g/dL (6.5-8.0)
[2025-04-17 13:24] VITALS: BP 105/73; PULSE 65; RESP 12; TEMP 37.2; O2SAT 100
[2025-04-17 13:49] VITALS: BP 105/73; PULSE 65; RESP 12; TEMP 37.2; O2SAT 100
== END 2025-04-17 13:49 | disposition home or self-care (01) ==
PROVIDERS: Emergency Provider Emergency Medicine; PCP Physician Assistant
DX: S05.12XA Contusion of eyeball and orbital tissues, left eye, initial encounter (principal); S09.90XA Unspecified injury of head, initial encounter; Y04.8XXA Assault by other bodily force, initial encounter; Y93.9 Activity, unspecified; Y92.9 Unspecified place or not applicable; Y99.9 Unspecified external cause status; Z79.899 Other long term (current) drug therapy
CPT/HCPCS: 36415; 70450; 70480; 72125; 80053; 85025; 93005; 99284; 99285

== ENCOUNTER → 2025-04-17 10:47 | Outpatient (BNV) | payer MEDICARE, MEDICAID, SELFPAY | PROVIDERS: Emergency Provider Emergency Medicine; PCP Physician Assistant; Visit Provider Internal Medicine Cardiovascular Disease | DX: R42 Dizziness and giddiness (principal) | CPT/HCPCS: 93010 ==

== ENCOUNTER → 2025-04-17 11:22 | Outpatient (BNV) | payer MEDICARE, MEDICAID, SELFPAY | PROVIDERS: Emergency Provider Emergency Medicine; PCP Physician Assistant; Visit Provider Radiology Diagnostic Radiology | DX: R51.9 Headache, unspecified (principal); R42 Dizziness and giddiness; S05.12XA Contusion of eyeball and orbital tissues, left eye, initial encounter | CPT/HCPCS: 70450; 70480 ==